=== PATIENT | male | born 1965 | race Caucasian/White ===

== ENCOUNTER 2018-01-29 20:47 | Emergency (ER) | payer MEDICAID ==
[~2018-01-29] VITALS: Ht 170.2 cm; Wt 89.8 kg
[~2018-01-29 20:47] MED LIST: RIVA10TA PO
[2018-01-30] MEDS ORDERED: ONDANSETRON HCL 4 MG/2 ML VIAL IM ONE (00:45)
[2018-01-30] MEDS ORDERED: DEXAMETHASONE SOD PHOS 10MG/1ML VIAL INJ IM ONE (00:45)
[2018-01-30] MEDS ORDERED: HYDROcodone-ACET 10/325MG TAB PO ONE (00:45)
[2018-01-30 03:06] VITALS: BP 105/41
== END 2018-01-30 03:09 | disposition home or self-care (01) ==
LOC: ER 20:47
DX: H66.93 Otitis media, unspecified, bilateral (principal); I10 Essential (primary) hypertension; Z90.49 Acquired absence of other specified parts of digestive tract; Z90.89 Acquired absence of other organs
CPT/HCPCS: 96372; 99284; J1100; J2405

== ENCOUNTER 2018-06-20 03:05 | Inpatient (IN) | payer MEDICAID ==
[~2018-06-20] VITALS: Ht 170.2 cm; Wt 91.1 kg
[2018-06-20] MEDS ORDERED: SODIUM CHLORIDE 0.9% 1,000 ML IV ONE ×2 (03:30→07:26)
[2018-06-20 04:03] LABS: Basophils # (auto) 0.1 uL; Basophils % (auto) 0.5 % (0.0-2.0); Eosinophils # (auto) 0.2 uL; Hematocrit 49.1 % (41.0-53.0); Hemoglobin 16.7 g/dL (13.5-17.5); Lymphocytes # (auto) 2.4 uL; Lymphocytes % (auto) 22.6 % (10.0-50.0); Mean Corpuscular Hemoglobin 30.5 pg (28.0-32.0); Mean Corpuscular Hgb Conc. 33.9 g/dL (32.0-36.0); Mean Corpuscular Volume 89.9 fL (80.0-100.0); Monocytes % (auto) 9.5 % (0.0-12.0); Neutrophils % (auto) 65.4 % (37.0-80.0); Nucleated Red Blood Cells % 0.1 %; Platelet Count (auto) 328 10^3/uL (140-450); Red Blood Cells 5.46 10^6/uL (4.5-5.90); Red Cell Distribution Width 14.4 % (11.8-14.3); White Blood Cell 10.7 10^3/uL (4.4-10.8)
[2018-06-20 04:18] LABS: INR 3.5 (0.9-1.15); Partial Thromboplastin Time 44.4 sec (23.78-33.04); Prothrombin Time 34.9 sec (9.27-12.13)
[2018-06-20 04:28] LABS: Calcium 9.4 mg/dL (8.5-10.1); Potassium 3.5 mmol/L (3.5-5.1)
[2018-06-20 04:38] LABS: BUN/Creatinine Ratio 6.7; Bilirubin, Total 0.3 mg/dL (0.2-1.0); Magnesium 2.9 mg/dL (1.6-2.6); Total Protein 8.3 g/dL (6.4-8.2)
[2018-06-20] MEDS ORDERED: NITROGLYCERIN 0.4 MG SL TAB SL ONE (07:45)
[2018-06-20] MEDS ORDERED: ASPirin 81 mg TAB PO ONE (07:45)
[2018-06-20 08:55] LABS: Urine Bacteria NONE SEEN /hpf (None Seen); Urine Blood Negative /uL (Negative); Urine Mucus FEW (None Seen); Urine Specific Gravity 1.007 (1.001-1.035); Urine WBC 2 /hpf (0 - 3)
[2018-06-20] MEDS ORDERED: ENOXAPARIN SOD 80 MG/0.8ML SYRINGE SC ONE (09:15)
[2018-06-20] MEDS ORDERED: MORPHINE SULF INJ 2 MG/ML SYRINGE 1ML IV PRN ×2 (13:15)
[2018-06-20] MEDS ORDERED: LORazepam 0.5 MG TAB PO PRN (13:15)
[2018-06-20] MEDS ORDERED: LACTULOSE 20Gm/30ML SOLN PO PRN (13:15)
[2018-06-20] MEDS ORDERED: TEMAZEPAM 15 MG CAP PO PRN (13:15)
[2018-06-20] MEDS ORDERED: ACETAMINOPHEN 500 MG TAB PO PRN (13:15)
[2018-06-20] MEDS ORDERED: NITROGLYCERIN 0.4 MG SL TAB SL PRN (13:15)
[2018-06-20] MEDS ORDERED: traMADol HCL 50 MG TAB PO PRN (13:15)
[2018-06-20] MEDS ORDERED: PROMETHAZINE HCL 25 MG/ML 1ML IV PRN (13:15)
[2018-06-20] MEDS: SODIUM CHLORIDE 0.9% 1,000 ML IV SCH ×2 (13:22→20:56)
[2018-06-20 14:53] LABS: CRP High Sensitivity 0.74 mg/dL (< 0.3)
[2018-06-20 20:12] LABS: Hematocrit 41.9 % (41.0-53.0); Hemoglobin 14.2 g/dL (13.5-17.5)
[2018-06-21 01:50] LABS: Hematocrit 40.7 % (41.0-53.0); Hemoglobin 13.4 g/dL (13.5-17.5)
[2018-06-21 03:42] LABS: Albumin 2.9 g/dL (3.4-5.0); BUN/Creatinine Ratio 15.5; Bilirubin, Total 0.2 mg/dL (0.2-1.0); Calcium 7.9 mg/dL (8.5-10.1); Potassium 3.4 mmol/L (3.5-5.1); Total Protein 6.4 g/dL (6.4-8.2)
[2018-06-21] MEDS: SODIUM CHLORIDE 0.9% 1,000 ML IV SCH ×3 (04:39→19:59)
[2018-06-21 07:07] LABS: Basophils # (auto) 0.1 uL; Eosinophils # (auto) 0.4 uL; Eosinophils % (auto) 6.3 % (0.0-7.0); Hematocrit 41.7 % (41.0-53.0); Mean Corpuscular Hemoglobin 30.4 pg (28.0-32.0); Mean Corpuscular Hgb Conc. 33.5 g/dL (32.0-36.0); Mean Corpuscular Volume 90.7 fL (80.0-100.0); Monocytes # (auto) 0.6 uL; Monocytes % (auto) 9.3 % (0.0-12.0); Neutrophils # (auto) 3.7 uL; Neutrophils % (auto) 54.4 % (37.0-80.0); Platelet Count (auto) 237 10^3/uL (140-450); Red Cell Distribution Width 14.3 % (11.8-14.3); White Blood Cell 6.8 10^3/uL (4.4-10.8)
[2018-06-21 07:35] LABS: INR 2.56 (0.9-1.15)
[2018-06-21] MEDS ORDERED: POTASSIUM CHL 20 Meq TABLET PO ONE (09:30)
[2018-06-21] MEDS: PANTOPRAZOLE 40 MG TAB PO SCH (10:02)
[2018-06-21 13:30] VITALS: BP 110/66
[2018-06-21] MEDS ORDERED: WARFARIN SODIUM 1 MG TAB PO ONE (17:00)
[2018-06-21 17:07] VITALS: BP 134/80
[2018-06-21 20:00] VITALS: BP 136/71
[2018-06-21 22:00] VITALS: BP 136/71
[2018-06-22] MEDS: SODIUM CHLORIDE 0.9% 1,000 ML IV SCH ×2 (03:24→12:20)
[2018-06-22 04:51] VITALS: BP 145/84
[2018-06-22 06:21] LABS: Basophils # (auto) 0.1 uL; Eosinophils # (auto) 0.4 uL; Eosinophils % (auto) 6.1 % (0.0-7.0); Hematocrit 38.5 % (41.0-53.0); Hemoglobin 13.1 g/dL (13.5-17.5); Lymphocytes # (auto) 1.7 uL; Lymphocytes % (auto) 29.3 % (10.0-50.0); Mean Corpuscular Hemoglobin 30.6 pg (28.0-32.0); Mean Corpuscular Hgb Conc. 33.9 g/dL (32.0-36.0); Monocytes # (auto) 0.4 uL; Monocytes % (auto) 7.5 % (0.0-12.0); Neutrophils # (auto) 3.3 uL; Neutrophils % (auto) 56.1 % (37.0-80.0); Nucleated Red Blood Cells % 0.1 %; Platelet Count (auto) 232 10^3/uL (140-450); Red Blood Cells 4.27 10^6/uL (4.5-5.90); White Blood Cell 5.9 10^3/uL (4.4-10.8)
[2018-06-22 06:33] LABS: INR 1.84 (0.9-1.15); Partial Thromboplastin Time 33.7 sec (23.78-33.04)
[2018-06-22 06:44] LABS: Albumin 2.9 g/dL (3.4-5.0); BUN/Creatinine Ratio 12.3; Calcium 7.9 mg/dL (8.5-10.1); Potassium 4.5 mmol/L (3.5-5.1)
[2018-06-22 06:47] LABS: Bilirubin, Total 0.2 mg/dL (0.2-1.0); Total Protein 6.3 g/dL (6.4-8.2)
[2018-06-22] MEDS: HYDROcodone-ACET 10/325MG TAB PO PRN ×3 (08:30→16:02)
[2018-06-22] MEDS: CARISOPRODOL 350 MG TAB PO PRN ×2 (08:30→16:01)
[2018-06-22 09:00] VITALS: BP 152/79
[2018-06-22 09:44] LABS: Hepatitis B Surface Antigen Negative (Negative)
[2018-06-22 10:07] LABS: Hepatitis C Antibody Negative (Negative)
[2018-06-22] MEDS: PANTOPRAZOLE 40 MG TAB PO SCH (10:19)
[2018-06-22 13:00] VITALS: BP 160/88
[2018-06-22] MEDS ORDERED: WARFARIN SODIUM 2 MG TAB PO ONE (17:00)
[2018-06-23 05:09] LABS: RPR Non Reactive (Non Reactive)
== END 2018-06-22 17:51 | disposition home or self-care (01) | DRG 469 ==
LOC: ER 03:05 → TELE 03:06 → TELE-EAST 06-21 12:50
PROVIDERS: ADMIT Internal Medicine; ATTEND Internal Medicine
DX: N17.0 Acute kidney failure with tubular necrosis (principal); D68.9 Coagulation defect, unspecified; I24.9 Acute ischemic heart disease, unspecified; E44.1 Mild protein-calorie malnutrition; E86.0 Dehydration; R55 Syncope and collapse; I12.9 Hypertensive chronic kidney disease with stage 1 through stage 4 chronic kidney disease, or unspecified chronic kidney disease; N18.9 Chronic kidney disease, unspecified; W07.XXXA Fall from chair, initial encounter; E87.6 Hypokalemia; Z86.711 Personal history of pulmonary embolism; Z79.01 Long term (current) use of anticoagulants; Z86.718 Personal history of other venous thrombosis and embolism; Z90.49 Acquired absence of other specified parts of digestive tract; Z68.31 Body mass index [BMI] 31.0-31.9, adult; Y93.89 Activity, other specified; Y92.89 Other specified places as the place of occurrence of the external cause; Y99.8 Other external cause status; Z72.89 Other problems related to lifestyle
CPT/HCPCS: 36415; 70450; 70545; 70551; 71046; 76775; 80053; 80061; 81001; 82150; 82550; 83690; 83735; 83880; 84100; 84154; 84443; 84484; 84550; 85014; 85018; 85025; 85610; 85652; 85730; 86141; 86592; 86803; 87340; 93005; 93306; 96360; 96361

== ENCOUNTER 2019-11-01 12:01 | Emergency (ER) | payer BC, MEDICAID ==
[~2019-11-01] VITALS: Ht 170.2 cm; Wt 86.2 kg
[2019-11-01 16:10] VITALS: BP 148/84
== END 2019-11-01 16:40 | disposition home or self-care (01) ==
LOC: ER 12:10
DX: L03.116 Cellulitis of left lower limb (principal); B35.3 Tinea pedis; I10 Essential (primary) hypertension; Z90.49 Acquired absence of other specified parts of digestive tract; Z90.89 Acquired absence of other organs
CPT/HCPCS: 93971

== ENCOUNTER 2020-09-17 21:48 | Emergency (ER) | payer BC ==
[~2020-09-17] VITALS: Ht 167.6 cm; Wt 86.2 kg
[2020-09-18 02:01] VITALS: BP 127/69
== END 2020-09-18 03:00 | disposition left against medical advice (07) ==
LOC: ER 21:48
DX: S09.90XA Unspecified injury of head, initial encounter (principal); Z53.21 Procedure and treatment not carried out due to patient leaving prior to being seen by health care provider; X58.XXXA Exposure to other specified factors, initial encounter; Y93.89 Activity, other specified; Y92.89 Other specified places as the place of occurrence of the external cause; Y99.8 Other external cause status
CPT/HCPCS: 70450; 70486; 72125